=== PATIENT | male | born 1955 | race Caucasian/White ===

== ENCOUNTER 2021-01-14 10:05 | Outpatient (REF) | payer MEDICARE, MEDICAID, SELFPAY ==
[2021-01-14 12:15] LABS: Erythrocyte Sedimentation Rate 7 MM/HR (0-15)
[2021-01-17 19:31] LABS: Copper RBC 0.72 mg/L (0.53-0.91)
[2021-01-19 21:02] LABS: Ceruloplasmin 25 mg/dL (18-36)
== END 2021-01-14 10:06 | disposition home or self-care (01) ==
LOC: HO.LAB 10:05
PROVIDERS: Visit Provider Psychiatry & Neurology Neurology
DX: G20 Parkinson's disease (principal)
CPT/HCPCS: 36415; 82390; 82525; 85652

== ENCOUNTER 2021-02-04 10:52 | Outpatient (REF) | payer MEDICARE, MEDICAID, SELFPAY ==
[2021-02-08 01:01] LABS: Arsenic, 24H Urine 28 mcg/L (<=80); Lead, 24H Urine <10 mcg/L (<80); Mercury, 24H Urine <4 mcg/L (<=20)
[2021-02-09 17:57] LABS: Copper,Urine 24 Hr 3 mcg/24 h (15-60); Total Volume 24 Ur 275 mL
== END 2021-02-04 10:53 | disposition home or self-care (01) ==
LOC: HO.LNP 10:52
PROVIDERS: Visit Provider Psychiatry & Neurology Neurology
DX: G20 Parkinson's disease (principal)
CPT/HCPCS: 82175; 82300; 82525; 83655; 83825

== ENCOUNTER 2021-12-04 10:48 | Emergency (ER) | payer MEDICARE, MEDICAID, SELFPAY ==
--- NOTE | ~2021-12-04 | CT_ITS ---
EXAMINATION: CT HEAD WITHOUT CONTRAST CLINICAL INFORMATION: Pain. Head trauma/fall COMPARISON: None TECHNIQUE: Contiguous axial imaging was performed from the skull base to vertex without intravenous administration of contrast. This CT examination was performed using dose optimization techniques as appropriate, variously including the following: *Automated exposure control *Adjustment of mA and/or kV according to patient size (this includes techniques or standardized protocols for targeted exams where dose is matched to indication/reason for exam; i.e. extremities or head) *Use of iterative reconstruction technique DLP: 671 mGy-cm FINDINGS: There is no evidence of acute intracranial hemorrhage or territorial infarction. No abnormal mass effect or midline shift is seen. Strong to white matter differentiation is well preserved. No extra-axial fluid collections are identified. The ventricles are normal in size. There is no abnormal attenuation within the brain parenchyma. The osseous structures and soft tissues are normal. The mastoid air cells and visualized portions of the paranasal sinuses are well aerated. CT/CT head/brain wo con IMPRESSION: Unremarkable exam.
--- NOTE | ~2021-12-04 | CT_ITS ---
EXAMINATION: CT CERVICAL SPINE WITHOUT CONTRAST CLINICAL INFORMATION: Trauma. Fall. COMPARISON: None TECHNIQUE: Axial images through the cervical spine without contrast. Sagittal and coronal reconstructions on the technologist workstation were performed. This CT examination was performed using dose optimization techniques as appropriate, variously including the following: *Automated exposure control *Adjustment of mA and/or kV according to patient size (this includes techniques or standardized protocols for targeted exams where dose is matched to indication/reason for exam; i.e. extremities or head) *Use of iterative reconstruction technique DLP: 324 mGy-cm FINDINGS: There is head tilt to the left and curvature of the cervical spine to the right. Bone alignment is otherwise normal. No fracture or dislocation is seen. There is degenerative spondylosis and degenerative disc disease at C3-C4 C4-C5 and C5-C6. There are degenerative changes at the C1-C2 articulation. Prevertebral soft tissues are normal. The lung apices are clear. CT/CT cervical spine wo con IMPRESSION: Degenerative changes. No fracture or dislocation seen. Fleischner guidelines were followed.
[2021-12-04 10:58] VITALS: BP 117/68; BP 124/68; PULSE 70; PULSE 77; RESP 16; TEMP 36.4; O2SAT 98; BMI 21.2
--- NOTE | 2021-12-04 11:14 | ED_ITS ---
HPI - Fall General Chief Complaint: Fall Stated Complaint: fall, hit head Time Seen by Provider: 12/04/21 10:58 Source: patient and EMS Mode of arrival: EMS History of Present Illness HPI Narrative: 66-year-old male with a past medical history Parkinson's presenting to ED from [facility] s/p mechanical fall from standing with head strike and unknown LOC. per patient he was ambulating with walker which got stuck on rug and fell backwards striking head. Per EMS staff heard fall and when they got into patient's room he was attempting to get up. Patient reports headache. Denies neck pain, back pain, symptoms prior to fall including lightheadedness/dizziness, CP/SOB. Denies nausea, vomiting, numbness, tingling, weakness. Denies taking AC. Admits recieved tetanus 10-12 years ago complaint: fall Onset (ago): hour(s) Fall from: standing Fall witnessed: no Place fall occurred: [facility] Loss of consciousness: unsure Related Data Allergies Allergy/AdvReac Type Severity Reaction Status Date / Time No Known Allergies Allergy Verified 12/04/21 11:10 Review of Systems Review of Systems: Constitutional: No Fever, No Chills, No Fatigue, No Malaise ENT/Mouth: No Ear Pain, No Nasal Congestion, No Hoarseness, No sore throat, No Rhinorrhea, No Swallowing Difficulty Eyes: No Eye Pain, No Swelling, No Redness, No Discharge, No Vision Changes Cardiovascular: No Chest Pain, No SOB, No Edema Respiratory: No Cough, No Sputum, No Dyspnea Gastrointestinal: No Nausea, No Vomiting, No Diarrhea, No Constipation, No Abdominal pain Genitourinary: No Dysuria, No Urinary Frequency, No Hematuria, No Flank Pain, No Urinary Flow Changes Musculoskeletal: No joint pain, No Myalgias, No Joint Swelling Skin: No Skin Lesions, No rash Neuro: No Weakness, No Numbness, No Paresthesias, Unknown Loss of Consciousness, No Dizziness, + Headache Yes all other systems are reviewed and are negative [facility] Past Medical History Attestation statement: The following information was validated with the patient. Social History Social History Use of substances other than those prescribed or required for medical reasons: No Advance Directives: No Advance Directives Information Provided: Yes Physical Exam Vital Signs: Vital Signs: Last Vital Signs Temp 97.6 F 12/04/21 10:58 Pulse 70 12/04/21 14:25 Resp 14 12/04/21 14:25 BP 102/65 12/04/21 14:25 Pulse Ox 98 12/04/21 14:25 BMI result Body Mass Index 21.2 Const: General: cooperative, no acute distress, alert and awake Orientation/consciousness: patient oriented x3 Limitations: no limitations HEENT: Other: + 1cm superficial laceration noted to left posterior scalp. Bleeding controlled Head: No Gonzalez's sign and No raccoon eyes Ears: hearing grossly normal bilaterally General nose exam: Normal external nose present Face and sinus: Yes normal facial exam Mouth: Normal oral and palatal mucosa present Throat: Yes posterior oropharynx normal, Yes tonsils normal, Yes uvula midline and No peritonsillar mass Eyes: General: appearance normal, both eyes and all related structures Sclerae: sclerae normal Corneas: corneas normal Pupils: Equal, round and reactive pupils present EOM: EOMs intact bilaterally Neck: Other: C-collar in place. No midline cervical spinous tenderness/step-off Neck: Yes normal visual inspection, Yes no meningeal signs and Yes trachea midline Chest: Chest palpation & inspection: no crepitus and no tenderness Resp: Effort & Inspection: normal respiratory effort and no respiratory distress Auscultation: clear to auscultation bilaterally, no rales, no rhonchi and no wheezes Cardio: Rate: regular rate Heart sounds: S1 normal heart sound present and S2 normal heart sound present GI: Inspection: Yes normal to inspection Palpation (GI): Soft to palpation, nontender, no guarding and not rigid : General: Yes no CVA tenderness Back/Spine/Pelvis: Other: No midline thoracic/lumbar spinous tenderness/step-off or deformity Back: no CVA tenderness Skin: Rashes: no rashes Neuro: General: patient oriented x3, tone normal, moves all extremities, no me ningeal signs, no focal motor deficits and CN's II-XI intact bilaterally Cranial nerves: Yes CN's II-XII intact bilaterally, Yes Equal, round and reactive pupils present, Yes Bilaterally intact EOM present and Yes Nystagmus not present Cognition (Neuro): normal cognition Motor exam (neuro): 5/5 motor strength present throughout Extrem: General: Yes normal to inspection Course Course Course Narrative: CT head/brain wo con IMPRESSION: Unremarkable exam. CT cervical spine wo con IMPRESSION: Degenerative changes. No fracture or dislocation seen. ? Fleischner guidelines were followed. > laceration repaired with 1 staple. Patient cleared to go back to SNF Procedures Laceration Laceration 1: Site: scalp Side (If applicable): left Size (cm): 1 Description: linear Depth: simple, single layer Pre-repair: wound explored and irrigated extensively Skin layer closed with: other (staple) Number of sutures: 1 MDM - Fall MDM Narrative Medical decision making narrative: 66-year-old male with a past medical history Parkinson's presenting to ED from [facility] s/p mechanical fall from standing with head strike and unknown LOC. on exam vital signs stable, NAD/nontoxic appearing, no midline spinous tenderness throat, no focal neuro deficits. Laceration noted to posterior scalp. Tetanus out of date. Concern for ICH vs fracture vs concussion Plan: Head/C-spine CT, update tetanus, repair laceration Differential Diagnosis Differential diagnosis: Likely fracture, concussion with loss of consciousness and concussion without loss of consciousness Medical Records Attestation: I reviewed the patient's medical records. Lab Data Attestation: I reviewed the patient's lab results. Discharge Plan Discharge Clinical Impression: Laceration of scalp, Fall Patient Disposition: er [facility] Instructions: Fall Prevention (ED), Laceration (DC) Additional Instructions: The CT of her head and neck were unremarkable. You have a laceration to the back of her head which was repaired with 1 staple, you need to return to any emergency department or urgent care in 7-10 days to have the staple removed Your tetanus was also updated today. If her wound begins look infected, is red, there is drainage from the area develop fever, constant worsening headache please return to the emergency department Referrals: ED Physician,Generic [Emergency Provider] - 1 week (7-10 days for staple rem oval)
[2021-12-04] MEDS: Diphth,Pertus(ACell),Tet Adult 0.5 ML SYRINGE IM (11:37)
--- NOTE | 2021-12-04 14:21 | PC.NURSE ---
LAC TO POSTERIOR SKULL CLEANED, NO APPARENT NEED FOR INTERVENTION. WILL COVER WITH WITH BACITRACIN
[2021-12-04 14:25] VITALS: BP 102/65; PULSE 70; RESP 14; O2SAT 98
== END 2021-12-04 15:58 | disposition skilled nursing facility (03) ==
PROVIDERS: Emergency Provider Emergency Medicine Emergency Medical Services
DX: S01.01XA Laceration without foreign body of scalp, initial encounter (principal); S10.91XA Abrasion of unspecified part of neck, initial encounter; M54.2 Cervicalgia; W01.0XXA Fall on same level from slipping, tripping and stumbling without subsequent striking against object, initial encounter; Y93.9 Activity, unspecified; Y92.129 Unspecified place in nursing home as the place of occurrence of the external cause; Y99.9 Unspecified external cause status; Z79.899 Other long term (current) drug therapy
CPT/HCPCS: 12001; 70450; 72125; 90471; 90715; 99284

== ENCOUNTER 2022-09-20 17:43 | Emergency (ER) | payer MEDICARE, MEDICAID, SELFPAY ==
--- NOTE | ~2022-09-20 | XR_ITS ---
EXAMINATION: XR SHOULDER, RIGHT CLINICAL INFORMATION: Trauma COMPARISON: None TECHNIQUE: Three views of the right shoulder. FINDINGS: There is AC joint separation. No fractures are seen. Degenerative changes are seen in the glenohumeral joint without dislocation. XR/XR shoulder RT min 2V IMPRESSION: Right AC joint separation
[2022-09-20 17:56] VITALS: BMI 25.0
--- NOTE | 2022-09-20 17:56 | ED.GENADULT ---
HPI - General Adult General Chief complaint: Extremity Injury, Upper Stated complaint: FALL 1WK AGO,R SHOULDER PAIN/? DISLOC,NO NEW INJ Time Seen by Provider: 09/20/22 17:50 Source: patient and EMS History of Present Illness HPI narrative: Patient states he fell a week ago and since then his shoulder has been hurting. He apparently was seen or no other facility were workup was negative. He was seen by visiting nurse today who called EMS as they had noticed a shoulder deformity. He is able to move the arm. He does describe pain in the shoulder. He denies any other injuries or complaints. Related Data Allergies Allergy/AdvReac Type Severity Reaction Status Date / Time No Known Allergies Allergy Verified 09/20/22 17:56 Review of Systems Constitutional: Comments: No fevers chills or weakness Cardiovascular: Comments: No chest pain Respiratory: Comments: No dyspnea Gastrointestinal: Comments: No abdominal pain Musculoskeletal: Comments: Right shoulder pain. No other pain Integumentary/Breasts: Comments: Bruising Neurologic: Comments: No focal weakness or numbness PMFSH Social History Social History Advance Directives: No Advance Directives Information Provided: Yes Physical Exam ED Vital Signs: Vital Signs - 24 hr 09/20/22 18:06 Temperature 98.2 F Pulse Rate 68 Respiratory Rate 18 Blood Pressure 138/79 Pulse Oximetry 99 Oxygen Delivery Method Room Air BMI result Body Mass Index 25.0 Const Other: Awake and alert. No acute distress. Neck Other: No neck tenderness Resp Other: Clear and equal bilaterally Cardio Other: Regular rate and rhythm without murmurs rubs or gallops GI Other: Soft nontender nondistended Skin Other: Warm pink and dry. Some contusion around the shoulder Neuro Other: Nonfocal neuro exam. Able to extend the right wrist. Sensation intact on lateral arm Extrem Other: Right shoulder with obvious deformity. Question dislocation versus AC joint separation versus fracture Medical Decision Making Medical Decision Making [facility] Narrative: Shoulder fracture versus dislocation. 20:02. X-ray shows grade AC joint separation Will treat with sling and swath and ortho follow-up Lab Data 09/20/22 18:22 09/20/22 18:22 Labs: Lab Results 09/20/22 09/20/22 Range/Units 18:22 18:22 WBC 7.9 (4.8-10.8) X10*3/uL RBC 3.59 L (4.60-5.80) X10*6/uL Hgb 11.5 L (14.0-18.0) g/dl Hct 34.4 L (42.0-52.0) % MCV 95.8 (80.0-98.0) fL MCH 32.0 (27.0-33.0) pg MCHC 33.4 (31.0-36.0) g/dl RDW 11.9 (11.0-16.0) % Plt Count 165 (160-400) X10*3/uL MPV 11.3 (9.4-12.4) fL Immature Gran % (Auto) 0.3 (0.0-0.4) % Neut % (Auto) 59.1 (45-73) % Lymph % (Auto) 23.6 (20-40) % Robeson % (Auto) 9.9 (2-11) % Eos % (Auto) 6.3 H (0-4) % Baso % (Auto) 0.8 (0-2) % Lymph # (Auto) 1.9 (1.2-4.9) X10*3/uL Robeson # (Auto) 0.8 (0.1-1.2) X10*3/uL Eos # (Auto) 0.5 H (0.0-0.4) X10*3/uL Baso # (Auto) 0.1 (0.0-0.2) X10*3/uL Abs Immat Gran (auto) 0.02 (0.00-0.03) X10*3/uL Absolute Neuts (auto) 4.7 (2.0-8.3) x10*3/uL Absolute Nucleated RBC 0.000 (0.0-0.012) X10*3/uL Nucleated RBC % (auto) 0.0 (0.0-0.2) /100WBC Sodium 141 (135-145) mmol/L Potassium 3.9 (3.3-5.1) mmol/L Chloride 110 H (96-108) mmol/L Carbon Dioxide 24 (22-29) mmol/L Anion Gap 11 L (12-20) BUN 14 (9-16) mg/dL Creatinine 0.67 (0.5-1.4) mg/dL Estim Creat Clear Calc 94.3 Estimated GFR > 60 Random Glucose 97 (60-115) mg/dL Calcium 9.0 (8.4-10.2) mg/dL Total Bilirubin 0.4 (0.0-1.0) mg/dL AST 21 (5-37) U/L ALT 19 (0-40) U/L Alkaline Phosphatase 69 (39-117) U/L Total Protein 6.0 L (6.5-8.0) g/dL Albumin 3.5 (3.5-5.0) g/dL Discharge Plan Discharge Clinical Impression: AC separation Patient Disposition: Home, Self-Care Instructions: Acromioclavicular Separation (ED) Additional Instructions: You have an AC separation, which is where your clavicle is from her shoulder joint. You need to follow-up with an legal financial specialist. See number below Referrals: Vamshi Ricardo MD [Physician] -
[2022-09-20 18:06] VITALS: BP 138/79; PULSE 68; RESP 18; TEMP 36.8; O2SAT 99
[2022-09-20 18:28] LABS: MANUAL DIFF FLAG NO
[2022-09-20 18:29] LABS: PLT CLUMP 1; Red Cell Distribution Width 11.9 % (11.0-16.0); SCAN SMEAR FLAG 1
[2022-09-20 18:31] LABS: Basophils Absolute Auto 0.1 X10*3/uL (0.0-0.2); Basophils Percent Auto 0.8 % (0-2); Eosinophils Absolute Auto 0.5 X10*3/uL (0.0-0.4); Eosinophils Percent Auto 6.3 % (0-4); Hematocrit 34.4 % (42.0-52.0); Hemoglobin 11.5 g/dl (14.0-18.0); Imm Gran Abs Auto 0.02 X10*3/uL (0.00-0.03); Imm Gran Pct Auto 0.3 % (0.0-0.4); Lymphocytes Absolute Auto 1.9 X10*3/uL (1.2-4.9); Lymphocytes Percent Auto 23.6 % (20-40); Mean Corpuscular HGB Conc 33.4 g/dl (31.0-36.0); Mean Corpuscular Volume 95.8 fL (80.0-98.0); Mean Platelet Volume 11.3 fL (9.4-12.4); Monocytes Absolute Auto 0.8 X10*3/uL (0.1-1.2); Monocytes Percent Auto 9.9 % (2-11); Neutrophils Absolute Auto 4.7 x10*3/uL (2.0-8.3); Neutrophils Percent Auto 59.1 % (45-73); Red Blood Count 3.59 X10*6/uL (4.60-5.80)
[2022-09-20 18:49] LABS: Alanine Aminotransferase 19 U/L (0-40); Albumin Level 3.5 g/dL (3.5-5.0); Alkaline Phosphatase 69 U/L (39-117); Anion Gap 11 (12-20); Aspartate Amino Transferase 21 U/L (5-37); Bilirubin Total 0.4 mg/dL (0.0-1.0); Blood Urea Nitrogen 14 mg/dL (9-16); Carbon Dioxide 24 mmol/L (22-29); Chloride 110 mmol/L (96-108); Creatinine Clr Calc Pharmacy 94.3; Estimated Glomerular Filt Rate > 60; Glucose Random 97 mg/dL (60-115); Potassium 3.9 mmol/L (3.3-5.1); Sodium 141 mmol/L (135-145)
--- OUTSIDE RECORDS SUMMARY | 2022-09-20 18:51 | XMS_ITS | Continuity of Care Document ---
:1955 Author Organization [facility] Address [address] [place] [address]- Care Team Providers Name Role Phone Not on Staff, PCP Primary Care Physician Unavailable Encounter [facility] Date(s): 11/17/21 - 11/19/[address] [address] Discharge Disposition: A-Transfer SNF Attending Physician: Briana Louis MD Admitting Physician: Carrie Golden MD Referring Physician: Not on Staff, Referring MD Allergies, Adverse Reactions, Alerts No Known Allergies Medications amantadine 100 mg oral tablet 1 tablet = 100 mg, By Mouth, 2 times a day, 0 Refills, Maintenance, 11/17/21 14:28:00 EDT, Partial fill upon patient request if the prescription is for a schedule II opioid drug. Start Date: 11/17/21 Status: Orderedcarbidopa-levodopa 25 mg-100 mg oral tablet 2 tablet, By Mouth, 4 times a day, # 240 tablet, 0 Refills, Maintenance, 11/16/21 20:17:00 EDT, Tablet, Partial fill upon patient request if the prescription is for a schedule II opioid drug. Start Date: 11/16/21 Status: Orderedgabapentin 100 mg oral capsule 100 mg, Capsule, By Mouth, 11/19/21 17:00:00 EDT Start Date: 11/19/21 Stop Date: 11/19/21 Status: Completedgabapentin 100 mg oral capsule 100 mg, 1, capsule, By Mouth, Daily at supper, Refills 0, Maintenance, 11/19/21 16:30:00 EDT, Partial fill upon patient request if the prescription is for a schedule II opioid drug. Start Date: 11/19/21 Status: OrderedTylenol 325 mg oral tablet 975 mg, 3, tablet, By Mouth, Every 6 hours, PRN, Refills 0, Maintenance, Pain , Mild, 11/19/21 16:30:00 EDT, Partial fill upon patient request if the prescription is for a schedule II opioid drug. Start Date: 11/19/21 Status: Ordered Results Radiology Reports Exam Date Time Procedure Performing Provider Status 11/16/21 6:35 PM XR Hip w/Pelvis 2-3 View Right Farhad Ley; [facility] (Verified) Notes:(XR Hip w/Pelvis 2-3 View Right) Reason For Exam: With Pain;TraumaRESULT: XR Hip w/Pelvis 2-3 View Right XR Hip w/Pelvis 2-3 View Right Hx of Present Illness: Pt sent from [facility] for evaluation of thoracic burst fx. Medicated CASE CONSULTANT deniespain at this time.; Reason: Trauma; With Pain; Clinical Question(s): Fracture COMPARISON: None. FINDINGS: Suboptimal crosstable lateral view of right hip due to overlying material. There is no fracture or dislocation. Mild degenerative changes of the right hip. Normal soft tissues. IMPRESSION: Suboptimal crosstable lateral view of right hip. No acute fracture. WSN: [id number] Ordering Physician: Barbie Barney Dictated By: Tevin Mike MD Dictated Date/Time: 11/16/21 6:40 pm Reviewed By: Tevin Mike MD Signed By: Tevin Mike MD Signed Date/Time: 11/16/21 6:40 pm Transcribed By: CASEY Transcribed Date/Time: 11/16/21 6:37 pm Vital Signs Most recent to oldest [Reference 1 2 3 Range]: Height 165 cm 165 cm 165 cm (11/19/21 8:22 PM) (11/19/21 1:45 PM) (11/19/21 5:01 A M) Weight 57.3 kg 63.5 kg 63.5 kg (11/17/21 2:35 PM) (11/17/21 1:30 PM) (11/17/21 11:15 AM) Oxygen Saturation [94-100 %] 97 % 99 % 99 % (11/19/21 8:22 PM) (11/19/21 2:00 PM) (11/19/21 10:00 AM) Pulse Rate [55-90 bpm] 89 bpm 88 bpm 73 bpm (11/19/21 8:22 PM) (11/19/21 2:00 PM) (11/19/21 1:45 P M) Body Mass Index [18.5-24.99] 21.05 23.32 23. 32 (11/17/21 2:35 PM) (11/17/21 1:30 PM) (11/17/21 11:15 AM) Blood Pressure [90-138/55-84 mm 113/72 mm Hg 101/62 mm Hg 117/67 mm Hg Hg] (11/19/21 8:22 PM) (11/19/21 2:00 PM) (11/19/21 1:45 P M) Respiratory Rate [16-30 br/min] 17 br/min 18 br/min 18 br/min (11/19/21 8:22 PM) (11/19/21 6:21 PM) (11/19/21 5:21 P M) Temperature [96.8-100.4 DegF] 98.3 DegF 96.8 DegF 96 .8 DegF (11/19/21 8:22 PM) (11/19/21 2:00 PM) (11/19/21 10:00 AM) Liters per Minute 0 L/min 0 L/min 0 L/min (11/19/21 2:00 PM) (11/18/21 3:00 PM) (11/18/21 10:03 AM) Mode of Delivery (Oxygen) Room air Room air Room a ir (11/19/21 8:22 PM) (11/19/21 2:00 PM) (11/19/21 10:00 AM) Blood pressure sites Arm, right Arm, right Arm, right (11/19/21 8:22 PM) (11/19/21 2:00 PM) (11/19/21 1:45 P M) Temperature Route Temporal Temporal Temporal (11/19/21 8:22 PM) (11/19/21 2:00 PM) (11/19/21 10:00 AM) Dry Weight 57.3 kg 63.5 kg 63.5 kg (11/17/21 2:35 PM) (11/17/21 1:30 PM) (11/17/21 11:15 AM)
--- OUTSIDE RECORDS SUMMARY | 2022-09-20 18:51 | XMS_ITS | Continuity of Care Document ---
:1955 Author Organization [facility] Address [address] [place] [address], [address] [address]- Care Team Providers Name Role Phone Not on Staff, PCP Primary Care Physician Unavailable Encounter 03/19/20 - 05/04/20 [facility] [address], [address] [place] [address]- [facility] Attending Physician: Luisito Washington Admitting Physician: Luisito Washington Referring Physician: Jonatan Alan MD , Kisha
--- OUTSIDE RECORDS SUMMARY | 2022-09-20 18:51 | XMS_ITS | Continuity of Care Document ---
:1955 Author Organization [facility] Address [address] [place] [id number]- Care Team Providers Name Role Phone Not on Staff, PCP Primary Care Physician Unavailable Encounter [facility] Date(s): 01/28/20 - 02/27/20 [facility] [address] [facility] [address] [place] [address] [facility] Attending Physician: Hunter Hough Admitting Physician: Hunter Hough Referring Physician: Hunter Hough
--- OUTSIDE RECORDS SUMMARY | 2022-09-20 18:51 | XMS_ITS | Continuity of Care Document ---
:1955 Author Organization [facility] Address [address] [place] [address], [address] [address]- Care Team Providers Name Role Phone Not on Staff, PCP Primary Care Physician Unavailable Encounter 01/28/20 - 03/12/20 [facility] [address], [address] [place] [address]- [facility] Attending Physician: Luisito Washington Admitting Physician: Luisito Washington Referring Physician: Jonatan Alan MD , Kisha
[2022-09-20 18:52] LABS: Platelet Count 165 X10*3/uL (160-400); White Blood Count 7.9 X10*3/uL (4.8-10.8)
--- NOTE | 2022-09-20 19:27 | PC.NURSE ---
pt resting on stretcher at this time. pt reports no new needs at this time
[2022-09-20 20:45] VITALS: BP 125/65; PULSE 83; RESP 14; O2SAT 97
--- NOTE | 2022-09-20 21:23 | PC.NURSE ---
pt up for discharge. pt states he lives on his own in apartment. pt states would need transportation home as he uses a wheelchair. unit secritary booked ems transportation with eta of 1 hr. pt states he does not have his home keys but states home is unlocked. this rn double checked this and pt reiterated that house should be unlocked. pt awaiting transportation at this time. piv removed at this time. immobilizing sling placed by designated broker pt tolerated well. pt provided with discharge packet. pt verbalized understanding of discharge plan
[2022-09-20 21:42] VITALS: BP 117/60; PULSE 76; RESP 13; TEMP 37.1; O2SAT 97
== END 2022-09-20 21:54 | disposition home or self-care (01) ==
PROVIDERS: Emergency Provider Emergency Medicine
DX: S43.101A Unspecified dislocation of right acromioclavicular joint, initial encounter (principal); W19.XXXA Unspecified fall, initial encounter; Y93.9 Activity, unspecified; Y92.9 Unspecified place or not applicable; Y99.9 Unspecified external cause status
CPT/HCPCS: 36415; 73030; 80053; 85025; 99283; 99284